=== PATIENT | male | born 1980 | race Caucasian/White ===

== ENCOUNTER 2016-06-08 21:45 | Emergency (ER) | payer SELFPAY ==
[~2016-06-08] VITALS: Ht 190.5 cm; Wt 117.6 kg
[~2016-06-08 21:45] MED LIST: AMOXICILLIN500 M1 PO; CIPRO500 MG PO; KEFLEX500 MG PO; MEDROL DOSEPAK4 MG PO; TYLENOL WITH C1 EACH PO
[2016-06-08 22:15] LABS: HEMATOCRIT 45.2 % (38.0-50.0); MCH 30.8 PG (29.0-34.0); MCHC 36.1 G/DL (30.0-36.0); MCV 85.3 FL (86-99); MEAN PLAT.VOLUME 11.8 uM^3 (9.0-12.4); PLATELET COUNT 242 K/uL (156-360); RBC DIS.WIDTH-CV 12.4 % (11.8-14.6); RBC DIS.WIDTH-SD 37.9 % (39-53); WHITE BLOOD COUNT 15.4 K/uL (4.1-10.2)
[2016-06-08 22:24] LABS: CHLORIDE 106 mEq/L (99-109); POTASSIUM 4.1 mEq/L (3.7-5.4); SODIUM 141 mEq/L (136-147)
[2016-06-08 22:26] LABS: GLUCOSE 100 mg/dL (70-99)
[2016-06-08 22:28] LABS: ANION GAP 12 MEQ/L (2-14)
[2016-06-08 22:30] LABS: GFR ESTIMATE (CALCULATED) > 59 mL/min/
[2016-06-08 22:31] LABS: UREA NITROGEN (BUN) 14 mg/dL (9-23)
[2016-06-08 22:36] LABS: TROP-I INTERPRETATION NEGATIVE; TROPONIN-I < 0.01 ng/mL (0.0-0.30)
[2016-06-09 00:39] LABS: TROP-I INTERPRETATION NEGATIVE; TROPONIN-I < 0.01 ng/mL (0.0-0.30)
[2016-06-09 01:55] VITALS: BP 122/84
== END 2016-06-09 02:12 | disposition home or self-care (01) ==
LOC: EME 21:45
PROVIDERS: Emergency Medicine
DX: R07.9 Chest pain, unspecified (principal); F17.200 Nicotine dependence, unspecified, uncomplicated
CPT/HCPCS: 71020; 80048; 84484; 85027; 93005; 99281; 99285

== ENCOUNTER 2017-11-19 14:57 | Emergency (ER) | payer SELFPAY ==
[~2017-11-19] VITALS: Ht 190.5 cm; Wt 109.0 kg
[2017-11-19 15:58] LABS: CHLORIDE 103 mEq/L (99-109); SODIUM 138 mEq/L (136-147)
[2017-11-19 15:59] LABS: GLUCOSE 88 mg/dL (70-99)
[2017-11-19 16:03] LABS: GFR ESTIMATE (CALCULATED) > 59 mL/min/ (58.99-99999)
[2017-11-19 16:04] LABS: UREA NITROGEN (BUN) 15 mg/dL (9-23)
[2017-11-19 16:09] LABS: TROP-I INTERPRETATION NEGATIVE; TROPONIN-I < 0.01 ng/mL (0.0-0.30)
[2017-11-19 16:10] LABS: HEMATOCRIT 48.1 % (38.0-50.0); HEMOGLOBIN 17.1 G/DL (12.5-16.6); MCH 31.5 PG (29.0-34.0); MCHC 35.6 G/DL (30.0-36.0); MCV 88.7 FL (86-99); RBC DIS.WIDTH-SD 42.2 % (39-53); RED BLOOD COUNT 5.42 M/uL (4.00-5.50); WHITE BLOOD COUNT 19.6 K/uL (4.1-10.2)
[2017-11-19 17:03] LABS: PLAT.SUFFICIENCY ADEQUATE; PLATELET COUNT 195 K/uL (156-360)
[2017-11-19 17:22] LABS: ALBUMIN 4.5 g/dL (3.2-4.8)
[2017-11-19 17:25] LABS: TOTAL PROTEIN 8.1 g/dL (6.4-8.3)
[2017-11-19 17:27] LABS: TOTAL BILIRUBIN 1.2 mg/dL (0.0-1.0)
[2017-11-19 17:28] LABS: ALKALINE PHOSPHATASE 81 IU/L (3-129)
[2017-11-19 17:30] LABS: AST (GOT) 19 IU/L (2-34)
[2017-11-19 17:31] LABS: ALT (GPT) 18 IU/L (3-49); DIRECT BILIRUBIN 0.4 mg/dL (0.0-0.3)
[2017-11-19 20:41] VITALS: BP 134/75
[2017-11-20 10:18] LABS: LYME DISEASE SEROLOGY SCREEN NEGATIVE (NEGATIVE)
== END 2017-11-19 20:48 | disposition home or self-care (01) ==
LOC: EME 14:57
DX: R07.9 Chest pain, unspecified (principal); R22.2 Localized swelling, mass and lump, trunk; F17.200 Nicotine dependence, unspecified, uncomplicated
CPT/HCPCS: 71046; 76705; 76882; 80048; 80076; 84484; 85027; 86618; 93005; 99281; 99284